=== PATIENT | female | born 1955 | race Asian ===

== ENCOUNTER 2017-05-08 11:45 | Emergency (ER) | payer BC ==
[~2017-05-08] VITALS: Ht 157.5 cm; Wt 66.7 kg
[2017-05-08 11:51] VITALS: Ht 157.5 cm; Wt 66.7 kg
[2017-05-08 12:46] LABS: BASOPHIL % 0.8 % (0-2); PLATELET COUNT 213 x10^3mcL (130-400); RED CELL DISTRIBUTION WIDTH 13.6 % (11.5-14.5)
[2017-05-08 12:51] LABS: CALCIUM 8.9 mg/dL (8.5-10.1); CARBON DIOXIDE 27.1 mmol/L (21-32); CHLORIDE SERUM 104 mmol/L (98-107); CREATININE SERUM 0.7 mg/dL (0.6-1.0); GFR1 > 60 mL/min; GLUCOSE SERUM 110 mg/dL (74-106); POTASSIUM SERUM 3.7 mmol/L (3.5-5.1); SODIUM SERUM 141 mmol/L (136-145)
[2017-05-08 12:55] LABS: ALBUMIN 3.7 g/dL (3.4-5.0); ALKALINE PHOSPHATASE 62 U/L (46-116); ALT/SGPT 26 U/L (14-59); AMYLASE 59 U/L (25-115); AST/SGOT 16 U/L (15-37); BILIRUBIN TOTAL 0.5 mg/dL (0.20-1.00); CHOLESTEROL 195 mg/dL (<200); HDL CHOLESTEROL 46 mg/dL (40-60); LIPASE 184 IU/L (73-393)
[2017-05-08 13:00] LABS: UA SPECIFIC GRAVITY <=1.005 (1.005-1.035); microscopic required? YES; urine erythrocyte TRACE (NEGATIVE)
[2017-05-08 15:21] VITALS: BP 111/47
== END 2017-05-08 15:21 | disposition home or self-care (01) ==
LOC: ED 11:45
PROVIDERS: Emergency Medicine
DX: J45.901 Unspecified asthma with (acute) exacerbation (principal)
CPT/HCPCS: 36600; 83880; 94150; J2930; J7030; J7613; J7644; Q0092